=== PATIENT | male | born 2005 | race Caucasian/White ===

== ENCOUNTER 2025-05-13 05:41 | Emergency (ER) | payer BC ==
[2025-05-13] MEDS ORDERED: Sodium Chloride 0.9% 10 ML Syringe FLUSH PRN (05:52)
[2025-05-13] MEDS ORDERED: Sodium Chloride 0.9% 2.5 ML Syringe FLUSH PRN (05:52)
[2025-05-13 06:04] LABS: MEAN PLATELET VOLUME 9.6 fL (9.4-12.4); NRBC ABSOLUTE 0.00 K/uL (0.00-0.02); NRBC PERCENT 0.0 /100WBC (0.0-0.2); PLATELET COUNT,PLT 228 K/uL (150-400); RED BLOOD CELL COUNT 5.06 M/uL (4.52-5.90); WHITE BLOOD CELL COUNT,WBC 13.34 K/uL (3.9-11.3)
[2025-05-13] MEDS: Ketorolac 30 MG/ML SDV IVPUSH ONE (06:18)
[2025-05-13 06:37] LABS: BLOOD UREA NITROGEN,BUN 22 mg/dL (7.0-18.0); CARBON DIOXIDE,CO2 29.9 mmol/L (21.0-32.0); CHLORIDE,CL 99 mmol/L (98-107); CREATININE 1.1 mg/dL (0.8-1.3); EST CRCL DRUG DOSING (CG) 117.58 mL/min; GLUCOSE RANDOM 122 mg/dL (74-106); POTASSIUM,K 3.6 mmol/L (3.5-5.1); SODIUM,NA 138 mmol/L (136-148)
[2025-05-13 06:38] LABS: ESTIMATED GFR 99 mL/min (>60)
[2025-05-13 06:49] LABS: EOSINOPHILS ABSOLUTE MAN 0.13 K/uL (0.00-0.45); EOSINOPHILS PERCENT MAN 1 % (0-6); LYMPHOCYTES ABSOLUTE MAN 2.13 K/uL (1.00-4.80); LYMPHOCYTES PERCENT MAN 16 % (24-44); MONOCYTES ABSOLUTE MAN 1.33 K/uL (0.00-0.80); MONOCYTES PERCENT MAN 10 % (0-8); SEG NEUTROPHILS ABSOLUTE MAN 9.74 K/uL (1.80-7.70); SEG NEUTROPHILS PERCENT MAN 73 % (41-71)
== END 2025-05-13 08:58 | disposition home or self-care (01) ==
LOC: MW.ED 05:41
DX: I30.9 Acute pericarditis, unspecified (principal); E10.9 Type 1 diabetes mellitus without complications; Z79.899 Other long term (current) drug therapy
CPT/HCPCS: 36415; 71045; 80048; 82947; 84484; 85025; 85652; 86140; 93005; 96361; 96374; 99285; A9270; J1885; J7030; 93010; 99284